=== PATIENT | male | born 1970 | race Caucasian/White ===

== ENCOUNTER → 2018-07-01 | Outpatient (CLI) | payer OTHER ==
[~2018-07-01] MED LIST: BENAZEPRIL HCL40 MG PO
--- NOTE | 2018-07-01 09:06 | Diagnostic Imaging Report ---
PROCEDURE:ABDOMINAL ULTRASOUND COMPARISON:None. INDICATIONS:Epigastric Pain FINDINGS: Liver: 17 cm in length in the right midclavicular line. Diffusely increased hepatic parenchymal echogenicity with focal sparing along the gallbladder fossa. No focal mass. Main portal vein: 1.2 cm in caliber. Hepatopedal flow. Gallbladder: 0.4 cm echogenic polypoid lesion without shadowing. Otherwise unremarkable in sonographic appearance without shadowing calculus, wall thickening, or pericholecystic fluid. Common Bile Duct: 0.4 cm in caliber. No echogenic filling defect. Sonographic Salazar's sign: Reported as negative. Right kidney: 12.7 cm in length. No solid or cystic mass, echogenic calculi, or hydronephrosis. Normal renal cortical echogenicity. Left kidney: 11.2 cm in length. No solid or cystic mass, echogenic calculi, or hydronephrosis. Normal renal cortical echogenicity. Spleen: 12.5 cm in length. Uniform parenchymal echotexture. Pancreas: The visualized portions of the pancreas are normal. Inferior vena cava: Patent. Aorta: Non-aneurysmal. Ascites: None. CONCLUSION: Hepatomegaly with hepatic steatosis. 4 mm probable gallbladder polyp. Followup abdominal ultrasound in one year is suggested to document stability. Dictated by: Guillaume Cates M.D. on 07/01/2018 at 9:13 Electronically approved by: Guillaume Cates M.D. on 07/01/2018 at 9:13
== END ==
LOC: US 07:19
PROVIDERS: ATTEND Internal Medicine Gastroenterology
DX: R10.13 Epigastric pain (principal)
CPT/HCPCS: 76700

== ENCOUNTER → 2018-08-31 | Day surgery (SDC) | payer OTHER ==
[2018-08-26 09:27] LABS: BASOPHILS % 0.6 % (0.0-1.0); EOSINOPHILS # (AUTO) 0.1 (0.0-0.4); EOSINOPHILS % 1.7 % (0.0-6.0); HEMATOCRIT 45.2 % (38.2-49.6); HEMOGLOBIN 15.6 g/dL (14.0-18.0); LYMPHOCYTES # (AUTO) 1.6 (1.0-3.2); LYMPHOCYTES % 24.5 % (18.0-39.1); MEAN CORPUSCULAR HEMOGLOBIN 30.4 pg (28-32); MEAN CORPUSCULAR HGB CONC 34.5 g/dL (31-35); MEAN CORPUSCULAR VOLUME 88.1 fL (81-99); MONOCYTES # (AUTO) 0.4 (0.2-0.8); MONOCYTES % 6.7 % (4.4-11.3); NEUTROPHILS # (AUTO) 4.2 (2.1-6.9); NEUTROPHILS % 66.2 % (38.7-80.0); PLATELET COUNT 299 x10e3/uL (140-360); RED BLOOD COUNT 5.13 x10e6/uL (4.3-5.7); RED CELL DISTRIBUTION WIDTH 11.9 % (11.7-14.4)
[2018-08-26 09:48] LABS: ALANINE AMINOTRANSFERASE 55 IU/L (0-55); ALBUMIN 4.2 g/dL (3.5-5.0); ALBUMIN/GLOBULIN RATIO 1.7 (0.8-2.0); ALKALINE PHOSPHATASE 73 IU/L (40-150); ANION GAP 12.6 mmol/L (8-16); BLOOD UREA NITROGEN 15 mg/dL (7-26); BUN/CREATININE RATIO 15 (6-25); CALCIUM 9.5 mg/dL (8.4-10.2); CARBON DIOXIDE 26 mmol/L (22-29); CHLORIDE 103 mmol/L (98-107); CREATININE, SERUM 1.03 mg/dL (0.72-1.25); EST GLOMERULAR FILTRATION RATE > 60 ML/MIN (60-); GLUCOSE 101 mg/dL (74-118); POTASSIUM 4.6 mmol/L (3.5-5.1); SODIUM 137 mmol/L (136-145)
[2018-08-26 09:49] LABS: CLARITY,URINE CLEAR (CLEAR); COLOR,URINE YELLOW (YELLOW)
[2018-08-26 09:50] LABS: BILIRUBIN,URINE NEGATIVE (NEGATIVE); KETONES,URINE NEGATIVE (NEGATIVE); LEUKOCYTE ESTERASE ,URINE NEGATIVE (NEGATIVE); NITRITE,URINE NEGATIVE (NEGATIVE); PROTEIN,URINE DIPSTICK NEGATIVE (NEGATIVE); URINE UROBILINOGEN 0.2 mg/dL (0.2 - 1)
[~2018-08-31] MED LIST changes: +ACETAMINOPHEN 1000 MG/100 ML IV ONE; +BUPIVACAINE 0.25%/EPI 30ML SDV INJ ONE; +CEFAZOLIN SOD 1 GM VIAL ONE; +DEXAMETHASONE SOD PHOS INJ 4 MG/ML VIAL ONE; +FENTANYL CITRATE/PF 100MCG/2 ML INJ ONE; +GLYCOPYRROLATE INJ 1MG/ 5 ML SYR ONE; +KETOROLAC TROMETHAMINE 30 MG/ML VIAL ONE; +LIDOCAINE HCL 2% LOCAL INJ 5 ML SDV VIAL INJ ONE; +METOCLOPRAMIDE HCL 10 MG/2ML VIAL ONE; +MIDAZOLAM HCL 2 MG/2 ML VIAL ONE; +NEOSTIGMINE 5 MG/5ML SYR ONE; +ONDANSETRON HCL INJ 2 MG/ML VIAL ONE; +PANTOPRAZOLE SO20 MG PO; +PROPOFOL IV EMULSION 10 MG/ML 20 ML VIAL ONE; +RANITIDINE HCL300 MG PO; +ROCURONIUM BROMIDE 10 MG/ML 5ML VIAL ONE; +SEVOFLURANE INHAL SOLN 250 ML PEN BTL ONE
--- OUTSIDE RECORDS SUMMARY | 2018-08-31 07:47 | XMS REPORT ---
Author Author [facility] Address Unknown Phone Unavailable Care Team Providers Care Lumber Tripper Name Role Phone JOHN ARGUELLO Unavailable Unavailable Problems This patient has no known problems. Allergies, Adverse Reactions, Alerts This patient has no known allergies or adverse reactions. Medications This patient has no known medications. Results Test Description Test Time Test Comments Text Results Atomic Results Result Comments HEPTOBILIARY W PHARM 2018-07-08 19:43:00 [place] [address] Patient Name: KT ROUSSEAU MR #: [id number] : 1970 Age/Sex: 48/M Req #: [id number] [facility] Physician: Ordered by: JOHN ARGUELLO MD Report #: [id number] Location: MD Room/Bed: Procedure: [id number] NM/HEPTOBILIARY W PHARM Exam Date: 07/08/18 Exam Time: 1030 REPORT STATUS: Signed Hepatobiliary Scan with Gallbladder Ejection Fraction Clinical information: 48 M with intermittent abdominal pain x 4 months. Technique: Following intravenous administration of 7 millicuries of Tc-99m mebrofenin, dynamic images of the abdomen in the anterior projection were obtained through 55 minutes. Sincalide (CCK analog) 2.3 micrograms was administered intravenously over 30 minutes with additional imaging for determination of gallbladder ejection fraction. Discussion: Perfusion of the liver is normal. Extraction of tracer by the liver parenchyma is normal. Tracer appears promptly within the biliary tract. The gallbladder begins to fill at 45 minutes post injection of tracer and fills adequately. Tracer is seen in the small bowel by 7 minutes. There is no contractile response by the gallbladder to the pharmacologic dose of sincalide. No emptying of the gallbladder occurs during the 30 minute infusion. Impression: 1. Filling of the gallbladder excludes acute cystic duct obstruction/acute cholecystitis. 2. The gallbladder ejection fraction is undefined as there is no emptying of the gallbladder during the infusion of sincalide. This absence of a contractile response to sincalide supports the clinical diagnosis of chronic cholecystitis/gallbladder dyskinesia. Signed by: Dr. Jacque Roger M.D. on 07/08/2018 7:54 PM Dictated By: JACQUE ROGER MD Electr onically Signed By: JACQUE ROGER MD on 07/08/181953 Transcribed By: JARET on 07/08/181953 COPY TO: JOHN ARGUELLO MD US ABDOMEN COMPLETE 2018-07-01 09:13:00 [place] [address] Patient Name: KT ROUSSEAU MR #: [id number] : 1970 Age/Sex: 48/M Req #: [id number] Adm Physician: Ordered by: JOHN ARGUELLO MD Report #: [id number] Location: Room/Bed: Procedure: [id number] US/US ABDOMEN COMPLETE Exam Date: Exam Time: REPORT STATUS: Signed PROCEDURE: ABDOMINAL ULTRASOUND COMPARISON: None. INDICATIONS: Epigastric Pain FINDINGS: Liver: 17 cm in length in the right midclavicular line. Diffusely increased hepatic parenchymal echogenicity with focal sparing along the gallbladder fossa. No focal mass. Main portal vein: 1.2 cm in caliber. Hepatopedal flow. Gallbladder: 0.4 cm echogenic polypoid lesion without shadowing. Otherwise unremarkable in sonographic appearance without shadowing calculus, wall thickening, or pericholecystic fluid. Common Bile Duct: 0.4 cm in caliber. No echogenic filling defect. Sonographic Salazar's sign: Reported as negative. Right kidney: 12.7 cm in length. No solid or cystic mass, echogenic calculi, or hydronephrosis. Normal renal cortical echogenicity. Left kidney: 11.2 cm in length. No solid or cy stic mass, echogenic calculi, or hydronephrosis. Normal renal cortical echogenicity. Spleen: 12.5 cm in length. Uniform parenchymal echotexture. Pancreas: The visualized portions of the pancreas are normal. Inferior vena cava: Patent. Aorta: Non-aneurysmal. Ascites: None. CONCLUSION: Hepatomegaly with hepatic steatosis. 4 mm probable gallbladder polyp. Followup abdominal ultrasound in one year is suggested to document stability. Dictated by: Massimo Nieves M.D. on 07/01/2018 at 9:13 Electronically approved by: Massimo Nieves M.D. on 07/01/2018 at 9:13 Dictated By: MASSIMO NIEVES MD 2 Transcribed By: TERESSA on 07/01/18912 COPY TO: JOHN ARGUELLO MD
--- NOTE | 2018-08-31 13:51 | Operative Report ---
DATE OF PROCEDURE: August 31, 2018 PREOPERATIVE DIAGNOSES 1. Biliary dyskinesia. 2. Umbilical hernia. POSTOPERATIVE DIAGNOSES 1. Biliary dyskinesia. 2. Umbilical hernia. OPERATIONS PERFORMED 1. Repair of umbilical hernia. 2. Laparoscopic cholecystectomy. PIPE PRODUCTION WORKER: Dr. Tenzin Grullon ANESTHESIA: General endotracheal. COMPLICATIONS: None. ESTIMATED BLOOD LOSS: Minimal. DESCRIPTION OF PROCEDURE: With the patient lying in bed in the supine position under good general anesthesia, the abdomen was prepped with Betadine solution and draped in the usual manner. A semilunar subumbilical incision was made. It was carried down through the subcutaneous tissue down to the fascia. The hernia sac was then encircled all the way around. The umbilicus was from the hernia sac. A Veress needle was then placed into the hernia sac, and pneumoperitoneum was established without any difficulty. An 11-mm trocar was placed through the hernia into the intra-abdominal cavity. A 10 mm video laparoscope was placed into the intra-abdominal cavity. Under direct vision, three 5-mm trocars were placed in the right subcostal region. An extra 5-mm trocar had to be placed in the left upper abdomen to be able to retract a redundant transverse colon. Laparoscopy at this point revealed some fatty infiltration of the liver. The gallbladder was actually covered up with adhesions. The rest the abdominal exploration was otherwise within normal limits. The adhesions of the gallbladder were then slowly and carefully taken down. The peritoneum overlying the neck of the gallbladder was then opened and the cystic duct was identified. The cystic duct was followed to its junction with the common duct. The cystic duct was then circumferentially dissected away from the common duct, doubly clipped and divided. The cystic artery was similarly doubly clipped and divided. The gallbladder was then slowly and carefully taken off the liver bed using the cautery scissors and perfect hemostasis was ascertained. The gallbladder was grasped through the umbilical port and removed without any difficulty. Video laparoscopy was then again carried out. The liver bed was found to perfectly dry. All of the excess fluid was aspirated. The pneumoperitoneum was evacuated and all the trocars were removed under direct vision. The umbilical hernia was then repaired using interrupted sutures of 0 Ethibond closing the defect transversely, and this gave us good repair without any tension. The whole area was thoroughly irrigated. Perfect hemostasis was ascertained. All layers were infiltrated on the way out with a solution of 0.25% Marcaine. The umbilicus was then tacked back down to the midline fascia with 3-0 Vicryl. The subcutaneous tissue was approximated with 3-0 Vicryl and the skin was closed with interrupted vertical mattress sutures of 3-0 silk. The other wounds were closed with subcuticular 5-0 Vicryl, Benzoin, Steri-Strips and Band-Aids. Dressings were applied. The sponge, lap and needle count was correct. The patient tolerated the procedure well and returned to the recovery room in stable condition. Job#: [id number] SHERRIE
[2018-08-31 15:05] VITALS: BP 115/64
== END | disposition home or self-care (01) ==
LOC: OR 07:44
PROVIDERS: ATTEND Surgery
DX: K80.10 Calculus of gallbladder with chronic cholecystitis without obstruction (principal); K42.9 Umbilical hernia without obstruction or gangrene; K76.0 Fatty (change of) liver, not elsewhere classified; K82.8 Other specified diseases of gallbladder; I10 Essential (primary) hypertension; R06.83 Snoring; K21.9 Gastro-esophageal reflux disease without esophagitis; Z01.810 Encounter for preprocedural cardiovascular examination; Z01.812 Encounter for preprocedural laboratory examination
CPT/HCPCS: 36415; 47562; 80053; 81003; 85025; 88304; 93005; C1766; J0131; J0690; J1100; J1885; J2001; J2250; J2405; J2704; J2765; J3490

== ENCOUNTER → 2021-06-22 | Day surgery (SDC) | payer OTHER ==
[~2021-06-22] MED LIST changes: -ACETAMINOPHEN 1000 MG/100 ML IV ONE; -BUPIVACAINE 0.25%/EPI 30ML SDV INJ ONE; -CEFAZOLIN SOD 1 GM VIAL ONE; -DEXAMETHASONE SOD PHOS INJ 4 MG/ML VIAL ONE; -FENTANYL CITRATE/PF 100MCG/2 ML INJ ONE; -GLYCOPYRROLATE INJ 1MG/ 5 ML SYR ONE; -KETOROLAC TROMETHAMINE 30 MG/ML VIAL ONE; -LIDOCAINE HCL 2% LOCAL INJ 5 ML SDV VIAL INJ ONE; -METOCLOPRAMIDE HCL 10 MG/2ML VIAL ONE; -MIDAZOLAM HCL 2 MG/2 ML VIAL ONE; -NEOSTIGMINE 5 MG/5ML SYR ONE; -ONDANSETRON HCL INJ 2 MG/ML VIAL ONE; -PROPOFOL IV EMULSION 10 MG/ML 20 ML VIAL ONE; -ROCURONIUM BROMIDE 10 MG/ML 5ML VIAL ONE; -SEVOFLURANE INHAL SOLN 250 ML PEN BTL ONE
[2021-06-22 17:00] VITALS: BP 141/90
== END | disposition home or self-care (01) ==
LOC: OR 11:49
PROVIDERS: ATTEND Internal Medicine Gastroenterology
DX: Z12.11 Encounter for screening for malignant neoplasm of colon (principal); D12.0 Benign neoplasm of cecum; D12.3 Benign neoplasm of transverse colon; I10 Essential (primary) hypertension; K64.8 Other hemorrhoids; Z01.810 Encounter for preprocedural cardiovascular examination; Z01.812 Encounter for preprocedural laboratory examination; Z20.822 Contact with and (suspected) exposure to COVID-19
CPT/HCPCS: 45380; 45384; 93005; U0002; 45378